=== PATIENT | female | born 1930 | race Caucasian/White ===

== ENCOUNTER 2020-03-17 07:16 | Emergency (ER) | payer MEDICARE, BC ==
[2020-03-17] MEDS ORDERED: SODIUM CHLORIDE 0.9% 1,000 ML IV STA (07:20)
--- NOTE | 2020-03-17 07:26 | ED ---
Fall HPI - General Stated Complaint: fall Time Seen by Provider: 03/17/20 07:16 Source: EMS, RN notes reviewed Mode of arrival: EMS - History of Present Illness Initial Comments: This is an 89-year-old female history dementia, hypertension recent left hip fracture and repair who apparently fell out of bed today at the nursing facility where she has. She sustained a laceration to the left lateral eyebrow/orbit. He apparently was noted have a PVCs per paramedics. She was responsive to verbal commands and conversation. No complaints of any other injuries. No neck or back pain. Other complaints or modifying factors the patient herself is a poor historian MD Complaint: fall - Related Data Home Medications Medication Instructions Recorded Confirmed ALPRAZolam [Xanax] 0.25 mg PO DAILY@1600 03/17/20 03/17/20 ALPRAZolam [Xanax] 0.25 mg PO Q4H PRN 03/17/20 03/17/20 Acetaminophen [Tylenol Extra 500 mg PO TID@0700,1300,1900 03/17/20 03/17/20 Strength] Amoxic-Pot Clav 875-125Mg 1 tab PO BID@0700,1900 03/17/20 03/17/20 [Augmentin 875-125] Aspirin 325 mg PO DAILY 03/17/20 03/17/20 DULoxetine HCL [Cymbalta] 30 mg PO HS 03/17/20 03/17/20 Docusate [Colace] 100 mg PO BID 03/17/20 03/17/20 HYDROcodone/APAP 5-325MG [Ferdinand 1 tab PO Q4HR PRN 03/17/20 03/17/20 5-325] Ibuprofen [Motrin] 600 mg PO Q8HR PRN 03/17/20 03/17/20 Lansoprazole [Prevacid] 15 mg PO DAILY 03/17/20 03/17/20 Losartan Potassium 50 mg PO DAILY 03/17/20 03/17/20 Ondansetron [Zofran] 4 mg PO Q8HR PRN 03/17/20 03/17/20 methocarbamoL [Robaxin] 500 mg PO TID PRN 03/17/20 03/17/20 Allergies Allergy/AdvReac Type Severity Reaction Status Date / Time No Known Allergies Allergy Verified 11/07/20 08:15 Review of Systems ROS Statement: Those systems with pertinent positive or pertinent negative responses have been documented in the HPI. ROS Other: All systems not noted in ROS Statement are negative. General Exam - General Exam Comments Initial Comments: This is a well-developed asthenic appearing female who is awake but lethargic with a Lucas Coma Scale of 14 Limitations: altered mental status, physical limitation General appearance: alert, lethargic Head exam: Present: normocephalic, other (Impression a 2.5 cm laceration to the left lateral eyebrow/orbit no active bleeding no formed by seen no step-off or depression. Crepitation) Eye exam: Present: normal appearance, PERRL, EOMI. Absent: scleral icterus, conjunctival injection, periorbital swelling ENT exam: Present: normal exam, mucous membranes moist Neck exam: Present: normal inspection, full ROM, other (No stridor JVD or bruits). Absent: tenderness, meningismus, lymphadenopathy Respiratory exam: Present: normal lung sounds bilaterally. Absent: respiratory distress, wheezes, rales, rhonchi, stridor Cardiovascular Exam: Present: regular rate, normal rhythm, normal heart sounds. Absent: systolic murmur, diastolic murmur, rubs, gallop, clicks GI/Abdominal exam: Present: soft, normal bowel sounds. Absent: distended, tenderness, guarding, rebound, rigid Rectal exam: Present: deferred Extremities exam: Present: full ROM, normal capillary refill, other (Staple line over the left hip is intact some ecchymosis noted no dehiscence no bleeding no deformity). Absent: tenderness, pedal edema, joint swelling, calf tenderness Back exam: Present: normal inspection Neurological exam: Present: alert, altered, CN II-XII intact. Absent: motor sensory deficit Psychiatric exam: Present: normal affect, normal mood Skin exam: Present: warm, dry, intact, normal color. Absent: rash Course Vital Signs 03/17/20 03/17/20 03/17/20 07:18 08:59 09:00 Temperature 97.9 F Pulse Rate 77 66 66 Respiratory 18 18 22 Rate Blood Pressure 121/61 120/61 120/61 O2 Sat by Pulse 98 98 98 Oximetry 03/17/20 09:30 Temperature Pulse Rate 81 Respiratory 19 Rate Blood Pressure 182/82 O2 Sat by Pulse 97 Oximetry Procedures - Laceration Laceration #1 Consent Obtained: verbal consent Indication: laceration Site: face Description: linear Depth: simple, single layer Anesthetic Used: lidocaine 1% Anesthesia Technique: local infiltration Amount (mls): 3 Pre-repair: wound explored Type of Sutures: vicryl Size of Sutures: 5-0, other (5-0 Vicryl Rapide) Technique: simple, interrupted (Total of 6 interrupted 6) Medical Decision Making - Medical Decision Making I did discuss findings with the patient and family as well as with the receiving physician Dr. Urbano at [facility] she has agreed to accept the patient transfer. This was at request of the family. - Lab Data Result diagrams: 03/17/20 07:48 03/17/20 07:48 Lab Results 03/17/20 03/17/20 03/17/20 Range/Units 07:48 07:48 07:48 WBC 10.7 H (3.8-10.6) k/uL RBC 3.80 (3.80-5.40) m/uL Hgb 10.8 L (11.4-16.0) gm/dL Hct 35.6 (34.0-46.0) % MCV 93.6 (80.0-100.0) fL MCH 28.5 (25.0-35.0) pg MCHC 30.5 L (31.0-37.0) g/dL RDW 14.7 (11.5-15.5) % Plt Count 356 (150-450) k/uL Neutrophils % 77 % Lymphocytes % 13 % Monocytes % 6 % Eosinophils % 3 % Basophils % 0 % Neutrophils # 8.2 H (1.3-7.7) k/uL Lymphocytes # 1.3 (1.0-4.8) k/uL Monocytes # 0.7 (0-1.0) k/uL Eosinophils # 0.3 (0-0.7) k/uL Basophils # 0.0 (0-0.2) k/uL PT 9.6 (9.0-12.0) sec INR 0.9 (<1.2) APTT 27.7 (22.0-30.0) sec Sodium 135 L (137-145) mmol/L Potassium 4.0 (3.5-5.1) mmol/L Chloride 102 (98-107) mmol/L Carbon Dioxide 26 (22-30) mmol/L Anion Gap 7 mmol/L BUN 29 H (7-17) mg/dL Creatinine 1.04 (0.52-1.04) mg/dL Est GFR (CKD-EPI)AfAm 56 (>60 ml/min/1.73 sqM) Est GFR (CKD-EPI)NonAf 48 (>60 ml/min/1.73 sqM) Glucose 109 H (74-99) mg/dL Calcium 8.7 (8.4-10.2) mg/dL Magnesium 2.1 (1.6-2.3) mg/dL Total Bilirubin 0.8 (0.2-1.3) mg/dL AST 26 (14-36) U/L ALT 14 (4-34) U/L Alkaline Phosphatase 49 (38-126) U/L Creatine Kinase 104 (30-135) U/L Troponin I (0.000-0.034) ng/mL Total Protein 5.6 L (6.3-8.2) g/dL Albumin 2.9 L (3.5-5.0) g/dL Blood Type Blood Type Confirm Blood Type Recheck Bld Type Recheck Status Antibody Screen Spec Expiration Date 03/17/20 03/17/20 03/17/20 Range/Units 07:48 07:49 07:51 WBC (3.8-10.6) k/uL RBC (3.80-5.40) m/uL Hgb (11.4-16.0) gm/dL Hct (34.0-46.0) % MCV (80.0-100.0) fL MCH (25.0-35.0) pg MCHC (31.0-37.0) g/dL RDW (11.5-15.5) % Plt Count (150-450) k/uL Neutrophils % % Lymphocytes % % Monocytes % % Eosinophils % % Basophils % % Neutrophils # (1.3-7.7) k/uL Lymphocytes # (1.0-4.8) k/uL Monocytes # (0-1.0) k/uL Eosinophils # (0-0.7) k/uL Basophils # (0-0.2) k/uL PT (9.0-12.0) sec INR (<1.2) APTT (22.0-30.0) sec Sodium (137-145) mmol/L Potassium (3.5-5.1) mmol/L Chloride (98-107) mmol/L Carbon Dioxide (22-30) mmol/L Anion Gap mmol/L BUN (7-17) mg/dL Creatinine (0.52-1.04) mg/dL Est GFR (CKD-EPI)AfAm (>60 ml/min/1.73 sqM) Est GFR (CKD-EPI)NonAf (>60 ml/min/1.73 sqM) Glucose (74-99) mg/dL Calcium (8.4-10.2) mg/dL Magnesium (1.6-2.3) mg/dL Total Bilirubin (0.2-1.3) mg/dL AST (14-36) U/L ALT (4-34) U/L Alkaline Phosphatase (38-126) U/L Creatine Kinase (30-135) U/L Troponin I <0.012 (0.000-0.034) ng/mL Total Protein (6.3-8.2) g/dL Albumin (3.5-5.0) g/dL Blood Type O Negative Blood Type Confirm O Negative Blood Type Recheck No Previous Record Bld Type Recheck Status CABO Indicated Antibody Screen NEGATIVE Spec Expiration Date 03/20/20202350 - EKG Data -: EKG Interpreted by Me EKG shows normal: sinus rhythm EKG Comments: Number sinus rhythm a 76 MT interval 194 QRS duration 82 QT since QTC 400/[address]-T wave changes seen some artifact present - Radiology Data Radiology results: report reviewed (I did review the imaging and report evidence of a small subarachnoid bleed to the left occipital temporal region. No mass effect at this time. C-spine x-rays are all negative), image reviewed Critical Care Time Critical Care Time: Yes Total Critical Care Time: 37 Critical Care Time: 37 minutes of critical care time which includes initial presentation with history physical labs x-rays discussed with the paramedics brought the patient in later discussion with the radiologist as well as patient's son. Discussion with the receiving facility discussed with the paramedics that the patient there documentation the above. Disposition Clinical Impression: Fall, Subarachnoid bleed, Laceration of left eyebrow Disposition: OTHER INSTITUTION NOT DEFINED Condition: Fair Referrals: Mohit Reyez MD [Primary Care Provider] - 1-2 days - Out of Hospital Transfer - Req. Specs Out of Hospital Transfer - Requested Specifics: Other Emergency Center
[2020-03-17] MEDS ORDERED: LIDOCAINE 1% INJ 10MG/ML (20 ML MDV) SQ ONE (07:46)
[2020-03-17 08:03] LABS: Basophils % (A) 0 %; Eosinophils # (A) 0.3 k/uL (0-0.7); Eosinophils % (A) 3 %; HCT 35.6 % (34.0-46.0); HGB 10.8 gm/dL (11.4-16.0); Lymphocytes # (A) 1.3 k/uL (1.0-4.8); Lymphocytes % (A) 13 %; MCH 28.5 pg (25.0-35.0); MCHC 30.5 g/dL (31.0-37.0); MCV 93.6 fL (80.0-100.0); Mean Platelet Volume 7.2; Monocytes # (A) 0.7 k/uL (0-1.0); Monocytes % (A) 6 %; Neutrophils # (A) 8.2 k/uL (1.3-7.7); Neutrophils % (A) 77 %; Platelet Count 356 k/uL (150-450); RDW 14.7 % (11.5-15.5); WBC 10.7 k/uL (3.8-10.6)
--- NOTE | 2020-03-17 08:17 | XR ---
EXAMINATION TYPE: XR chest 1V portable DATE OF EXAM: 03/17/2020 CLINICAL HISTORY: trauma. TECHNIQUE: Portable frontal views of the chest. COMPARISON: None FINDINGS: Cardiomegaly. Aortic silhouette is prominent. Central pulmonary vascular congestion. No pl eural effusion or pneumothorax. Degenerative change of the bilateral shoulders. No displaced osseous fracture. IMPRESSION: 1. Prominent thoracic aortic silhouette. No baseline comparison is available. If there is clinical co ncern for thoracic aortic aneurysm/injury, recommend CT. 2. Cardiomegaly and pulmonary vascular congestion.
--- NOTE | 2020-03-17 08:18 | XR ---
EXAMINATION TYPE: XR pelvis AP view DATE OF EXAM: 03/17/2020 CLINICAL HISTORY: Trauma TECHNIQUE: A single AP view of the pelvis is obtained. COMPARISON: None. FINDINGS: There is no acute fracture or dislocation evident in the pelvis. Bilateral hip prostheses incompletely visualized.. Sacroiliac joints are symmetric and unremarkable. Pubic symphysis is not wi dened. Degenerative changes of the spine. IMPRESSION: There is no acute fracture or dislocation in the pelvis.
[2020-03-17 08:23] LABS: Albumin 2.9 g/dL (3.5-5.0); Calcium 8.7 mg/dL (8.4-10.2); Magnesium 2.1 mg/dL (1.6-2.3); Total Bilirubin 0.8 mg/dL (0.2-1.3); Total Protein 5.6 g/dL (6.3-8.2)
--- NOTE | 2020-03-17 08:27 | CT ---
EXAMINATION TYPE: CT brain cspine wo con DATE OF EXAM: 03/17/2020 COMPARISON: None HISTORY: Fall CT DLP: 1327.6 mGycm Automated exposure control for dose reduction was used. TECHNIQUE: CT scan of the head and cervical spine are performed without contrast. FINDINGS: There is no acute intracranial hemorrhage, mass effect, or midline shift identified. Ther e is a small region of subarachnoid hemorrhage at the left temporo-occipital region (201:30). General ized volume loss. She white matter hypodensities likely sequela of chronic microvascular ischemic rashi nge. The globes are grossly symmetric with cataract postsurgical changes. No depressed calvarial frac ture. Mucosal thickening of the right maxillary sinus. Cervical spine is visualized in its entirety from C1 through upper thoracic levels and demonstrates s atisfactory alignment without evidence of acute fracture or dislocation. Diffuse degenerative change s. Grade 1 anterolisthesis of C4 on C5. Prevertebral soft tissue appears within normal limits. The C 1-C2 articulation is unremarkable. IMPRESSION: 1. Small subarachnoid hemorrhage of the left temporo-occipital region. 2. No acute fracture or dislocation of the cervical spine. Dr. Mami Bond discussed findings with Dr. Jose Maria Han via the phone on 03/17/2020 8:24 AM, and results were acknowledged.
[2020-03-17 08:32] LABS: INR 0.9 (<1.2); Partial Thromboplastin Time 27.7 sec (22.0-30.0); Prothrombin Time 9.6 sec (9.0-12.0)
--- NOTE | 2020-03-17 09:37 | XR ---
EXAMINATION TYPE: XR humerus LT, XR forearm LT DATE OF EXAM: 03/17/2020 CLINICAL HISTORY: Fall TECHNIQUE: Two views of the left humerus are obtained. 2 views of the left forearm are obtained. COMPARISON: None. FINDINGS: There is no acute fracture or dislocation seen in the left forearm or humerus. Degenerati ve changes of the left shoulder joint and left wrist joint. The overlying soft tissue appears within normal limits. IMPRESSION: No acute fracture or dislocation is evident in the left forearm or left humerus.
[2020-03-17] MEDS ORDERED: levETIRAcetam IV 1,000 MG in SALINE 1 100ML.BAG IVPB STA (09:39)
[2020-03-17] MEDS ORDERED: HYDROmorphone 0.5 MG/0.5 ML SYRINGE IVP STA (09:39)
[2020-03-17 09:43] VITALS: RESP 19
[2020-03-17 10:11] VITALS: BP 175/98; PULSE 71
[2020-03-17 10:20] VITALS: TEMP 98.2
== END 2020-03-17 10:18 | disposition other institution (70) ==
LOC: EC 07:16
DX: S06.6X0A Traumatic subarachnoid hemorrhage without loss of consciousness, initial encounter (principal); S01.112A Laceration without foreign body of left eyelid and periocular area, initial encounter; I10 Essential (primary) hypertension; F03.90 Unspecified dementia, unspecified severity, without behavioral disturbance, psychotic disturbance, mood disturbance, and anxiety; Z79.899 Other long term (current) drug therapy; Z79.82 Long term (current) use of aspirin; W06.XXXA Fall from bed, initial encounter; Y92.003 Bedroom of unspecified non-institutional (private) residence as the place of occurrence of the external cause
CPT/HCPCS: 93005; 86900; 86901; 80053; 82550; 83735; 84484; 85025; 85610; 85730; 86850; 72170; 73060; 73090; 71045; 72125; 70450; 99291; 12011; 96365; 96375; 96361 ×2; J2001; J1953; J1170